=== PATIENT | female | born 1945 | race Caucasian/White ===

== ENCOUNTER 2017-04-09 16:37 | Emergency (ER) | payer MEDICARE, OTHER ==
[~2017-04-09] VITALS: Ht 160 cm; Wt 140.6 kg
[2017-04-09] MEDS ORDERED: MONT10TA2 (16:54)
[2017-04-09] MEDS ORDERED: ATEN100T (16:54)
[2017-04-09] MEDS ORDERED: WARF-58 (16:54)
[2017-04-09] MEDS ORDERED: LISI10TA4 (16:54)
[2017-04-09] MEDS ORDERED: SIMV40TA2 (16:54)
[2017-04-09] MEDS ORDERED: MECLIZINE 25 MG TABLET PO ONE (17:00)
[2017-04-09] MEDS ORDERED: NS 500 ML IV ONE ×2 (17:00→18:15)
--- NOTE | 2017-04-09 17:16 | REP ---
Clinical: Vertigo . Comparison: None . Findings: The ventricles, sulci, and cisterns are normal in position and appearance. Rodriguez-white differentiation is maintained. No acute intracranial hemorrhage, mass/mass effect, pathology or trauma/injury. No evidence for acute infarction. No extra-axial fluid collection. Calvarium is intact. Paranasal sinuses and mastoid air cells are clear. Impression: Normal noncontrast head CT. No evidence for acute intracranial pathology or trauma/injury. Signed by Good Edwards MD 04/09/2017 05:08 P
[2017-04-09 17:32] LABS: BASO % 0.4 % (0.0-1.0); EOS # 0.2 K/mm3 (0.0-0.50); EOS % 1.9 % (0.0-3.0); LARGE UNSTAINED CELL # 0.1 K/mm3 (0.0-0.4); LARGE UNSTAINED CELL % 0.7 % (0.0-4.0); LYMPH # 0.9 K/mm3 (1.5-4.5); LYMPH % 9.2 % (24.0-44.0); MEAN CORPUSCULAR HGB CONC 32.9 g/dl (32.0-36.5); MEAN CORPUSCULAR VOLUME 91.1 fl (80.0-96.0); MONO # 0.5 K/mm3 (0.0-0.8); MONO % 5.1 % (0.0-5.0); NEUTROPHILS # 7.9 K/mm3 (1.8-7.7); NEUTROPHILS % 82.6 % (36.0-66.0); PLATELET COUNT, AUTOMATED 207 k/mm3 (150-450); RED CELL DISTRIBUTION WIDTH 13.4 % (11.5-14.5); WHITE BLOOD COUNT 9.5 K/mm3 (4.0-10.0)
[2017-04-09 17:58] LABS: CALCIUM LEVEL 9.1 MG/DL (8.8-10.2); CREATININE FOR GFR 1.1 MG/DL (0.55-1.02); GLOMERULAR FILTRATION RATE 52.3 (>39); POTASSIUM SERUM 4.6 MEQ/L (3.5-5.1)
[2017-04-09 18:02] LABS: INR 2.61
[2017-04-09] MEDS ORDERED: MECL-68 PO (18:05)
[2017-04-09 20:53] VITALS: BP 130/80
--- NOTE | 2017-04-10 09:26 | ECGEPIP ---
Stationary ECG Study [facility] - ED Test Date: 2017-04-09 Pat Name: KAYLI MORROW Department: Room: - Gender: F [place] [employer]: sb : [id number] Requested By: Deyanira Louis Order Number: [id number] Reading MD: Misbah Camilo Measurements Intervals [place] Rate: 116 P: RI: 0 QRS: 44 QRSD: 102 T: -10 QT: 336 QTc: 467 Interpretive Statements ATRIAL FIBRILLATION WITH RAPID VENTRICULAR RESPONSE NO PRIORS Electronically Signed On 04-10-2017 9:25:50 EDT by Misbah Camilo
== END 2017-04-09 21:10 | disposition home or self-care (01) ==
LOC: M ED 17:19
DX: R42 Dizziness and giddiness (principal); I10 Essential (primary) hypertension; I48.91 Unspecified atrial fibrillation; Z79.01 Long term (current) use of anticoagulants; Z79.899 Other long term (current) drug therapy; Z88.8 Allergy status to other drugs, medicaments and biological substances
CPT/HCPCS: 70450; 80048; 81001; 85025; 85610; 93005; 96361; 96374; 96376; 99284; J3360

== ENCOUNTER 2017-07-18 10:38 | Emergency (ER) | payer MEDICARE, OTHER ==
[~2017-07-18] VITALS: Ht 157.5 cm; Wt 140.1 kg
[~2017-07-18 10:38] MED LIST: ATEN100T; LISI10TA4; MECL-68 PO; MONT10TA2; SIMV40TA2; WARF-58
[2017-07-18 12:44] LABS: BASO % 0.5 % (0.0-1.0); EOS # 0.5 K/mm3 (0.0-0.50); EOS % 6.5 % (0.0-3.0); LARGE UNSTAINED CELL # 0.1 K/mm3 (0.0-0.4); LARGE UNSTAINED CELL % 0.7 % (0.0-4.0); LYMPH % 12.9 % (24.0-44.0); MEAN CORPUSCULAR HEMOGLOBIN 29.4 pg (27.0-33.0); MEAN CORPUSCULAR HGB CONC 32.3 g/dl (32.0-36.5); MEAN CORPUSCULAR VOLUME 91.1 fl (80.0-96.0); MONO # 0.4 K/mm3 (0.0-0.8); MONO % 4.9 % (0.0-5.0); NEUTROPHILS # 5.6 K/mm3 (1.8-7.7); NEUTROPHILS % 74.4 % (36.0-66.0); PLATELET COUNT, AUTOMATED 253 k/mm3 (150-450); RED CELL DISTRIBUTION WIDTH 13.7 % (11.5-14.5); WHITE BLOOD COUNT 7.6 K/mm3 (4.0-10.0)
[2017-07-18] MEDS ORDERED: diphenhydrAMINE 50 MG CAP PO ONE (12:45)
[2017-07-18 13:03] LABS: ALBUMIN 3.5 GM/DL (3.2-5.2); ALBUMIN/GLOBULIN RATIO 0.85 (1.00-1.93); BILIRUBIN,TOTAL 0.3 MG/DL (0.2-1.0); CALCIUM LEVEL 8.9 MG/DL (8.8-10.2); CREATININE FOR GFR 1.29 MG/DL (0.55-1.02); GLOMERULAR FILTRATION RATE 43.5 (>39); POTASSIUM SERUM 4.1 MEQ/L (3.5-5.1); TOTAL PROTEIN 7.6 GM/DL (6.4-8.2)
[2017-07-18] MEDS ORDERED: NEOSOIN EX (13:26)
[2017-07-18] MEDS ORDERED: BENA25TA10 PO (13:26)
[2017-07-18 13:53] VITALS: BP 132/73
== END 2017-07-18 13:56 | disposition home or self-care (01) ==
LOC: M ED 10:38
DX: T78.40XA Allergy, unspecified, initial encounter (principal); L25.9 Unspecified contact dermatitis, unspecified cause; Z87.891 Personal history of nicotine dependence

== ENCOUNTER → 2017-08-24 | Outpatient (CLI) | payer MEDICARE, OTHER ==
[~2017-08-24] MED LIST changes: +BENA25TA10 PO; +METHACHOLINE KIT (J7674) INH ONE; +NEOSOIN EX
--- NOTE | 2017-08-24 10:27 | PFTRPT ---
Tech: Feli GANDARA RRT Age: 71 Sex: Female Race: Height: 62.50 Inches Weight: 308.00 Lbs BSA: 2.31 Diagnosis: R06.02 METHACHOLINE CHALLENGE REPORT: ORDERING PROVIDER: Tor Shen MD DATE OF SERVICE: 08/24/17 INTERPRETATION: The study was of excellent technical quality. Under protocol, methacholine was administered. At a dose of 2.5 mg (13.875 CDUs), a 26% decline in the FEV1 was noted. The PC20 of 1.12 is significant. Flow rates returned to baseline post bronchodilator administration. IMPRESSION: Positive methacholine challenge study. MTDD
== END ==
LOC: M CARPUL 09:39
PROVIDERS: ATTEND Internal Medicine Pulmonary Disease
DX: R06.02 Shortness of breath (principal)
CPT/HCPCS: 94070; 95070; J7674

== ENCOUNTER → 2022-09-16 | Outpatient (CLI) | payer MEDICARE, OTHER ==
[~2022-09-16] MED LIST changes: +LISI10TA22; -LISI10TA4; -MECL-68 PO; +MECL1TAB31 PO; -METHACHOLINE KIT (J7674) INH ONE; -MONT10TA2; +MONT10TA97; -SIMV40TA2; +SIMV40TA20
== END ==
LOC: M WHC 09:41
PROVIDERS: ATTEND Family Medicine
DX: Z12.31 Encounter for screening mammogram for malignant neoplasm of breast (principal)

== ENCOUNTER 2024-11-11 11:27 | Emergency (ER) | payer MEDICARE, OTHER ==
[~2024-11-11] VITALS: Ht 157.5 cm; Wt 139.2 kg
[~2024-11-11 11:27] MED LIST changes: +ACUL0.5S OS; +ARNU1INH3 INH; -ATEN100T; +ATEN100T PO; -LISI10TA22; +LISI10TA22 PO; +MECL-209 PO; -MECL1TAB31 PO; -MONT10TA97; +MONT10TA97 PO; +PRED1SUS30 OD; -SIMV40TA20; +SIMV40TA20 PO; +SYST1SOL4 OU; +TOBRSUS41 OS; -WARF-58; +WARF-58 PO
[2024-11-11 13:40] VITALS: BP 138/63; TEMP 97.3; O2SAT 96
== END 2024-11-11 13:40 | disposition home or self-care (01) ==
LOC: M ED 11:27
DX: S92.514A Nondisplaced fracture of proximal phalanx of right lesser toe(s), initial encounter for closed fracture (principal); X50.1XXA Overexertion from prolonged static or awkward postures, initial encounter; Y92.009 Unspecified place in unspecified non-institutional (private) residence as the place of occurrence of the external cause; Y93.9 Activity, unspecified; Y99.9 Unspecified external cause status; I48.91 Unspecified atrial fibrillation; E11.9 Type 2 diabetes mellitus without complications; I10 Essential (primary) hypertension; Z79.01 Long term (current) use of anticoagulants; Z79.899 Other long term (current) drug therapy; Z88.6 Allergy status to analgesic agent; Z91.89 Other specified personal risk factors, not elsewhere classified

== ENCOUNTER → 2025-02-01 | Outpatient (CLI) | payer MEDICARE, OTHER | LOC: M WHC 14:43 | PROVIDERS: ATTEND Family Medicine | DX: Z12.31 Encounter for screening mammogram for malignant neoplasm of breast (principal); R92.313 Mammographic fatty tissue density, bilateral breasts ==